=== PATIENT | female | born 1995 | race Caucasian/White ===

== ENCOUNTER 2021-10-16 16:36 | Inpatient (IN) | payer MEDICAID ==
[~2021-10-16] VITALS: Ht 160 cm; Wt 72.5 kg
[2021-10-16 17:31] LABS: BASOPHILS % (AUTO) 0 % (0-10); MONOCYTES % (AUTO) 0 % (0-12)
[2021-10-16 17:33] LABS: BASOPHILS # (AUTO) 0.1 10^3/uL (0.0-0.1); EOSINOPHILS # (AUTO) 0.3 10^3/uL (0.0-0.3); EOSINOPHILS % (AUTO) 2 % (0-10); HEMATOCRIT 42 % (35-52); HEMOGLOBIN 14.4 g/dL (11.5-16.0); LYMPHOCYTES # (AUTO) 0.2 10^3/uL (1.0-4.0); LYMPHOCYTES % (AUTO) 1 % (12-44); MEAN CORPUSCULAR HEMOGLOBIN 31 pg (25-34); MEAN CORPUSCULAR HGB CONC 34 g/dL (32-36); MEAN CORPUSCULAR VOLUME 92 fL (80-99); MEAN PLATELET VOLUME 10.7 fL (9.0-12.2); MONOCYTES # (AUTO) 0.1 10^3/uL (0.0-1.0); NEUTROPHILS # (AUTO) 18.6 10^3/uL (1.8-7.8); NEUTROPHILS % (AUTO) 96 % (42-75); PLATELET COUNT 56 10^3/uL (130-400); WHITE BLOOD COUNT 19.4 10^3/uL (4.3-11.0)
[2021-10-16 17:34] LABS: ALBUMIN 3.6 GM/DL (3.2-4.5)
[2021-10-16 17:35] LABS: CHLORIDE 106 MMOL/L (98-107); POTASSIUM 3.4 MMOL/L (3.6-5.0); SODIUM 139 MMOL/L (135-145)
[2021-10-16 17:36] LABS: CALCIUM 8.6 MG/DL (8.5-10.1)
[2021-10-16] MEDS ORDERED: morphine INJ 10 MG/ML 1ML (SYR OR VIAL) IVP STA (17:36)
[2021-10-16 17:37] LABS: GLUCOSE 101 MG/DL (70-105); TOTAL PROTEIN 6.6 GM/DL (6.4-8.2)
[2021-10-16 17:38] LABS: CARBON DIOXIDE 15 MMOL/L (21-32)
[2021-10-16 17:39] LABS: BILIRUBIN,TOTAL 6.4 MG/DL (0.1-1.0)
[2021-10-16 17:40] LABS: ALKALINE PHOSPHATASE 107 U/L (40-136)
[2021-10-16 17:41] LABS: CREATININE SERUM 1.06 MG/DL (0.60-1.30); GFR ESTIMATED 75
[2021-10-16 17:42] LABS: BUN/CREATININE RATIO 15
--- NOTE | 2021-10-16 17:42 | ED GU-Female ---
General Chief Complaint: - Reproductive Stated Complaint: VAGINAL PAIN, CHILLS Nursing Triage Note: PT AMB TO TRIAGE WITH COMPLAINT OF BEING SENT HERE BY OBGYN FOR ADMISSION. PT STATES SHE HAD A D&C FIVE DAYS IN [place] BY DR Potter. STATES SHE SAW HIM IN OFFICE TODAY AND HE TOLD HER THERE WAS NOT AN OBGYN ON WHO COULD ADMIT HER. STATES SHE WENT TO [place] ER LAST NIG AND WAS TOLD SHE HAD A BLOOD CLOT IN HER UTERUS. PT STATES SHE WAS 15 WEEKS ALONG WHEN SHE HAD THE D&C. STATES OB IS CONCERNED SHE COULD BE GOING SEPTIC. Source: patient Exam Limitations: no limitations (MAN LYNCH MED STUDENT) History of Present Illness Date Seen by Provider: Oct 16, 2021 Time Seen by Provider: 17:26 Initial Comments Mrs. Eaton is a 25yo female with PMH of kidney stones and D/C on the that presents to the ED due to vaginal pain and vomiting. She had D/C performed by Dr. Guerra. She has been been doing fin until last night. Her oxycodone and ibuprofen stopped being able to control the pain. She went to [facility] and was told they found a clot on CT. She states that her OBGYN was not available and was going to admit her and transfer her [place] or [place] due to suspeced sepsis. She decided to drive so she would not have to pay for an ambulance ride. Other symptoms she is having include Chills, sweats, SOB, nausea, and vomiting. She has had kidney stones before and she thought it kind of felt like previous stones when the pain came on but now is different. She does smoke and use marijuana. NKDA. (MAN LYNCH MED STUDENT) Initial Comments Patient reports since returning home from the [facility] last night she has had fairly intense nausea and vomiting with epigastric pain. She also has a generalized myalgia and chills. She has not experienced fever. Labs from the [facility] were reviewed and white count was 5.7. CT scan demonstrated contents inside the uterus, possibly clot, but no other acute abnormalities. Patient has a diffusely tender abdomen with pain more intense in the epigastrium. (GAIL ORANTES MD) Allergies and Home Medications Allergies Coded Allergies: No Known Drug Allergies (Unverified , 10/16/21) Patient Home Medication List Home Medication List Reviewed: Yes (GAIL ORANTES MD) Review of Systems Review of Systems Constitutional: chills; No fever EENTM: No hearing loss, No vision loss Respiratory: cough, short of breath; No wheezing Cardiovascular: No chest pain, No edema, No palpitations Gastrointestinal: abdominal pain; No constipation, No diarrhea, No melena; nausea, vomiting Genitourinary: denies dysuria, denies hematuria; pain : No Musculoskeletal: back pain (radiating from abdomen and vaginal pain); No joint pain, No joint swelling Skin: No lesions, No rash Psychiatric/Neurological: Denies Headache, Denies Numbness (MAN LYNCH [employer] STUDENT) Past Tilzseu-Yoxkki-Gxasem Hx Patient Social History Tobacco Use?: No Use of E-Cig and/or Vaping dev: No Substance use?: Yes Substance type: Marijuana Alcohol Use?: No Pt feels they are or have been: No (MAN LYNCH Markkit MELECIO) Immunizations Up To Date Influenza Vaccine Up-to-Date: No; Not Current (MAN LYNCH Markkit MELECIO) Physical Exam Vital Signs Vital Signs - First Documented 10/16/21 16:49 Temp 36.9 Pulse 108 Resp 22 B/P (MAP) 116/70 (85) Pulse Ox 97 O2 Delivery Room Air (NIXONLEXIEA Saroj DO) Vital Signs Capillary Refill : Less Than 3 Seconds (MAN LYNCH [employer] STUDENT) Height, Weight, BMI Height: '" Weight: lbs. oz. kg; 28.00 BMI Method: General Appearance: WD/WN, moderate distress HEENT: PERRL/EOMI, pharynx normal Cardiovascular: regular rate, rhythm, no edema, no murmur Respiratory: chest non-tender, lungs clear, normal breath sounds Gastrointestinal: normal bowel sounds, soft, tenderness (diffuse, worse in epigastric area) Extremities: non-tender, no pedal edema, no calf tenderness Neurologic/Psychiatric: alert, normal mood/affect, oriented x 3 Skin: normal color, warm/dry (MAN LYNCH [employer] STUDENT) Focused Exam Sepsis Stage: Sepsis Possible Source: Other (CREATIVE TECHNOLOGIST) Lactate Level 10/16/21 21:56: Lactic Acid Level 2.99*H 10/17/21 00:06: Lactic Acid Level 3.19*H 10/17/21 02:20: Lactic Acid Level 1.87 (RENITA RODRIGUEZ DO) Time of Focused Exam: 19:00 Respiratory: Normal Breath Sounds, No Accessory Muscle Use, No Respiratory Distress Cardiovascular: Regular Rate, Rhythm, No Murmur Capillary Refill: Less Than 3 Seconds Skin: normal color Lactic Acid Level Laboratory Tests Test 10/17/21 02:20 Lactic Acid Level 1.87 MMOL/L (0.50-2.00) (RENITA RODRIGUEZ DO) Within 3hrs of presentation: Admin fluids, Admin ABX, Blood cultures prior to ABX's, Focus exam, Lactate level (RENITA RODRIGUEZ DO) Progress/Results/Core Measures Suspected Sepsis SIRS Temperature: Pulse: 108 Respiratory Rate: 22 Laboratory Tests 10/16/21 17:10: White Blood Count 19.4H Blood Pressure 116 /70 Mean: 85 Laboratory Tests 10/16/21 17:10: Platelet Count 56L (MAN LYNCH MED STUDENT) Results/Orders Lab Results Laboratory Tests Test 10/16/21 00:10 10/16/21 17:10 10/16/21 17:42 10/16/21 18:01 Range/Units Procalcitonin 85.07 H 113.48 H <0.10 NG/ML White Blood Count 19.4 H 4.3-11.0 10^3/uL Red Blood Count 4.61 3.80-5.11 10^6/uL Hemoglobin 14.4 11.5-16.0 g/dL Hematocrit 42 35-52 % Mean Corpuscular Volume 92 80-99 fL Mean Corpuscular Hemoglobin 31 25-34 pg Mean Corpuscular Hemoglobin Concent 34 32-36 g/dL Red Cell Distribution Width 12.9 10.0-14.5 % Platelet Count 56 L 130-400 10^3/uL Mean Platelet Volume 10.7 9.0-12.2 fL Immature Granulocyte % (Auto) 1 % Neutrophils (%) (Auto) 96 H 42-75 % Lymphocytes (%) (Auto) 1 L 12-44 % Monocytes (%) (Auto) 0 0-12 % Eosinophils (%) (Auto) 2 0-10 % Basophils (%) (Auto) 0 0-10 % Neutrophils # (Auto) 18.6 H 1.8-7.8 10^3/uL Lymphocytes # (Auto) 0.2 L 1.0-4.0 10^3/uL Monocytes # (Auto) 0.1 0.0-1.0 10^3/uL Eosinophils # (Auto) 0.3 0.0-0.3 10^3/uL Basophils # (Auto) 0.1 0.0-0.1 10^3/uL Immature Granulocyte # (Auto) 0.2 H 0.0-0.1 10^3/uL Neutrophils % (Manual) 96 % Lymphocytes % (Manual) 1 % Monocytes % (Manual) 3 % Percent Immature Platelet Fraction 6.6 0.0-7.6 % Blood Morphology Comment NORMAL Sodium Level 139 135-145 MMOL/L Potassium Level 3.4 L 3.6-5.0 MMOL/L Chloride Level 106 98-107 MMOL/L Carbon Dioxide Level 15 L 21-32 MMOL/L Anion Gap 18 H 5-14 MMOL/L Blood Urea Nitrogen 16 7-18 MG/DL Creatinine 1.06 0.60-1.30 MG/DL Estimat Glomerular Filtration Rate 75 BUN/Creatinine Ratio 15 Glucose Level 101 70-105 MG/DL Lactic Acid Level 3.84 *H 0.50-2.00 MMOL/L Calcium Level 8.6 8.5-10.1 MG/DL Corrected Calcium 8.9 8.5-10.1 MG/DL Total Bilirubin 6.4 H 0.1-1.0 MG/DL Aspartate Amino Transf (AST/SGOT) 60 H 5-34 U/L Alanine Aminotransferase (ALT/SGPT) 31 0-55 U/L Alkaline Phosphatase 107 40-136 U/L C-Reactive Protein High Sensitivity 19.52 H 0.00-0.50 MG/DL Total Protein 6.6 6.4-8.2 GM/DL Albumin 3.6 3.2-4.5 GM/DL Lipase 4 L 8-78 U/L Human Chorionic Gonadotropin, Quant < 5 <5 MIU/ML Urine Color YELLOW Urine Clarity CLEAR Urine pH 6.0 5-9 Urine Specific [place] 1.025 H 1.016-1.022 Urine Protein 3+ H NEGATIVE Urine Glucose (UA) TRACE H NEGATIVE Urine Ketones TRACE H NEGATIVE Urine Nitrite POSITIVE H NEGATIVE Urine Bilirubin 2+ H NEGATIVE Urine Urobilinogen 4.0 < = 1.0 MG/DL Urine Leukocyte Esterase TRACE H NEGATIVE Urine RBC (Auto) 3+ H NEGATIVE Urine RBC 2-5 H /HPF Urine WBC 0-2 /HPF Urine Squamous Epithelial Cells 0-2 /HPF Urine Renal Epithelial Cells NONE /HPF Urine Crystals PRESENT H /LPF Urine Amorphous Sediment FEW PRIETO PHOSPHATE H /LPF Urine Bacteria LARGE H /HPF Urine Casts NONE /LPF Urine Mucus NEGATIVE /LPF Urine Yeast FEW H /HPF Urine Culture Indicated YES Influenza Type A (RT-PCR) Not Detected Not Detecte Influenza Type B (RT-PCR) Not Detected Not Detecte SARS-CoV-2 RNA (RT-PCR) Not Detected Not Detecte Test 10/16/21 19:48 10/16/21 21:56 10/17/21 00:06 10/17/21 02:20 Range/Units Lactic Acid Level 2.97 *H 2.99 *H 3.19 *H 1.87 0.50-2.00 MMOL/L Total Bilirubin 6.1 H 6.7 H 0.1-1.0 MG/DL Aspartate Amino Transf (AST/SGOT) 78 H 92 H 5-34 U/L Alanine Aminotransferase (ALT/SGPT) 37 55 0-55 U/L White Blood Count 19.3 H 17.7 H 4.3-11.0 10^3/uL Red Blood Count 4.10 4.13 3.80-5.11 10^6/uL Hemoglobin 13.0 13.0 11.5-16.0 g/dL Hematocrit 38 38 35-52 % Mean Corpuscular Volume 92 92 80-99 fL Mean Corpuscular Hemoglobin 32 32 25-34 pg Mean Corpuscular Hemoglobin Concent 34 34 32-36 g/dL Red Cell Distribution Width 12.9 13.0 10.0-14.5 % Platelet Count 54 L 55 L 130-400 10^3/uL Mean Platelet Volume 11.3 12.4 H 9.0-12.2 fL Immature Granulocyte % (Auto) 1 2 % Neutrophils (%) (Auto) 89 H 94 H 42-75 % Lymphocytes (%) (Auto) 2 L 2 L 12-44 % Monocytes (%) (Auto) 1 2 0-12 % Eosinophils (%) (Auto) 8 0 0-10 % Basophils (%) (Auto) 0 0 0-10 % Neutrophils # (Auto) 17.1 H 16.7 H 1.8-7.8 10^3/uL Lymphocytes # (Auto) 0.3 L 0.4 L 1.0-4.0 10^3/uL Monocytes # (Auto) 0.1 0.3 0.0-1.0 10^3/uL Eosinophils # (Auto) 1.5 H 0.0 0.0-0.3 10^3/uL Basophils # (Auto) 0.1 0.1 0.0-0.1 10^3/uL Immature Granulocyte # (Auto) 0.2 H 0.3 H 0.0-0.1 10^3/uL Percent Immature Platelet Fraction 9.0 H 0.0-7.6 % Prothrombin Time 19.8 H 19.3 H 12.2-14.7 SEC INR Comment 1.6 H 1.6 H 0.8-1.4 Sodium Level 138 139 135-145 MMOL/L Potassium Level 3.9 4.0 3.6-5.0 MMOL/L Chloride Level 104 106 98-107 MMOL/L Carbon Dioxide Level 16 L 15 L 21-32 MMOL/L Anion Gap 18 H 18 H 5-14 MMOL/L Blood Urea Nitrogen 19 H 21 H 7-18 MG/DL Creatinine 1.18 1.26 0.60-1.30 MG/DL Estimat Glomerular Filtration Rate 66 61 BUN/Creatinine Ratio 16 17 Glucose Level 103 92 70-105 MG/DL Calcium Level 7.8 L 7.5 L 8.5-10.1 MG/DL Activated Partial Thromboplast Time 48 H 24-35 SEC Fibrinogen 291 221-496 MG/DL Corrected Calcium 8.1 L 8.5-10.1 MG/DL Phosphorus Level 3.7 2.3-4.7 MG/DL Magnesium Level 1.2 L 1.6-2.4 MG/DL Alkaline Phosphatase 79 40-136 U/L Total Protein 5.9 L 6.4-8.2 GM/DL Albumin 3.2 3.2-4.5 GM/DL Procalcitonin 81.60 H <0.10 NG/ML (NIXON,RENITA K DO) My Orders Orders - NIXON,RENITA K DO Procalcitonin (Pct) (10/16/21 18:45) Iohexol Injection (Omnipaque 350 Mg/Ml 1 (10/16/21 19:00) Received Contrast (Hold Metformin- Contr (10/16/21 19:00) Ns (Ivpb) (Sodium Chloride 0.9% Ivpb Bag (10/16/21 19:00) (RENITA RODRIGUEZ DO) Medications Given in ED Current Medications Medications Dose Ordered Sig/Petros Route Start Time Stop Time Status Last Admin Dose Admin Iohexol 100 ml ONCE ONCE IV 10/16/21 18:45 10/16/21 18:46 DC 10/16/21 18:58 92 ML Lactated Ringer's 1,000 ml @ 0 mls/hr Q0M ONCE IV 10/16/21 18:45 10/16/21 18:46 DC 10/16/21 18:44 0 MLS/HR Piperacillin Sod/ Tazobactam Sod 4.5 gm/Sodium Chloride 100 ml @ 200 mls/hr ONCE ONCE IV 10/16/21 18:45 10/16/21 19:14 DC 10/16/21 19:19 200 MLS/HR Sodium Chloride 100 ml ONCE ONCE IV 10/16/21 18:45 10/16/21 18:46 DC 10/16/21 18:58 80 ML (RENITA RODRIGUEZ DO) Vital Signs/I&O 10/16/21 10/16/21 10/16/21 10/16/21 19:39 20:40 20:45 20:56 Temp 36.7 36.2 Pulse 105 104 100 Resp 18 18 B/P (MAP) 103/65 117/60 (79) Pulse Ox 96 98 O2 Delivery Room Air Room Air Room Air 10/16/21 10/17/21 10/17/21 10/17/21 23:15 00:37 03:31 04:00 Temp 37.7 36.0 36.0 Pulse 114 110 Resp 18 B/P (MAP) 98/67 (77) Pulse Ox 100 O2 Delivery Room Air 10/17/21 04:00 O2 Delivery Room Air (RENITA RODRIGUEZ DO) Vital Signs/I&O Capillary Refill : Less Than 3 Seconds (MAN LYNCH MED STUDENT) Blood Pressure Mean: 85 Progress Note : Progress Note 1800--ASSUMED CARE FROM DR. ORANTES, LAB, CT PENDING. PT RESTING COMFORTABLY AT THIS TIME. NO COMPLAINTS VITALS ARE STABLE HEART RATE REMAINS 90-100 NO HYPOTENSION NO FEVER NO DETERIORATION IN PT'S CONDITION DURING ER STAY (RENITA RODRIGUEZ DO) Progress Note : Time: 19:03 Progress Note Patient was seen and examined along with MS 4. She was found to have a diffusely tender abdomen with more intense tenderness in the epigastrium. She was treated with Zofran, Pepcid, and morphine. IV fluids are infusing. She is noted to have a significant shift in labs from her ER visit last night. Her WBC is now 19,000. CRP is also notably elevated. With a marked jump in WBC, tachycardia, and chills, she should be considered septic. Urinalysis demonstrated a mixed picture. It was nitrite positive with large bacteria but no significant WBC count. Lactic acid was elevated. Blood cultures have been drawn. I discussed the case with Dr. Nelson, MEDICAL RADIATION THERAPIST on-call. We discussed imaging modalities to evaluate her pain and sepsis further. Retained products is an unlikely etiology without any vaginal bleeding and a negative serum hCG quant. Other abdominal infection should be ruled out. We both agree CT of the abdomen and pelvis should be repeated due to the abrupt change in the patient's status and lab values since last night. Risks and benefits were reviewed and we feel obligated to obtain a repeat CT scan after discussion. Patient is being empirically treated with Zosyn at this time. CT scan was obtained and interpretation is pending. Influenza and COVID-19 nasal swabs were obtained as patient significant other also noted she had some cough in the last hour. Both tests were negative. Care of this patient has been transitioned to Dr. Rodriguez. (GAIL ORANTES MD) Diagnostic Imaging Comments CT ABDOMEN /PELVIS--PER RADIOLOGIST REPORT AT 1914 FINDINGS: The heart is unremarkable. The included lung bases are clear. Focal fatty infiltration is seen along the falciform ligament. No focal hepatic lesions. The portal vein is patent. The gallbladder is filled with dense material likely representing recent contrast study. The spleen, pancreas, adrenal glands and kidneys have a normal appearance. There is no pathologically enlarged mesenteric or retroperitoneal adenopathy. The bowel loops are nondilated. There is no free fluid or free air. No acute osseous abnormalities. Ureters and bladder are grossly normal. There is thickening of the endometrium with hyperemia along the endometrial lining and fluid filling the endometrial cavity. The endometrial cavity measures 3.6 cm in diameter. There is no free air, loculated collection or adenopathy in the pelvis. IMPRESSION: Suggestive of endometritis versus retained products of conception. Recommend correlation with physical exam and close follow-up, as indicated. Pelvic ultrasound may also be considered. Reviewed: Reviewed by Me (RENITA RODRIGUEZ DO) Diagonstic Imaging: CT Plain Films/CT/US/NM/MRI: abdomen, pelvis Comments CT abdomen and pelvis viewed by me and report reviewed. See report below: NAME: MOHINDER EATON [facility] REC#: [id number] PT STATUS: REG ER : 1995 PHYSICIAN: GAIL ORANTES MD ADMIT DATE: 10/16/21/ER Signed Date of Exam:10/16/21 CT ABDOMEN/PELVIS W EXAMINATION: CT abdomen and pelvis with intravenous contrast. TECHNIQUE: Multiple contiguous axial images were obtained through the abdomen and pelvis after the uneventful administration of intravenous contrast. All CT scans use one or more of the following dose optimizing techniques: automated exposure control, MA and/or KvP adjustment based on patient size and exam type or iterative reconstruction. HISTORY: Generalized abdominal pain. Recent D C. COMPARISON: None available. FINDINGS: The heart is unremarkable. The included lung bases are clear. Focal fatty infiltration is seen along the falciform ligament. No focal hepatic lesions. The portal vein is patent. The gallbladder is filled with dense material likely representing recent contrast study. The spleen, pancreas, adrenal glands and kidneys have a normal appearance. There is no pathologically enlarged mesenteric or retroperitoneal adenopathy. The bowel loops are nondilated. There is no free fluid or free air. No acute osseous abnormalities. Ureters and bladder are grossly normal. There is thickening of the endometrium with hyperemia along the endometrial lining and fluid filling the endometrial cavity. The endometrial cavity measures 3.6 cm in diameter. There is no free air, loculated collection or adenopathy in the pelvis. IMPRESSION: Suggestive of endometritis versus retained products of conception. Recommend correlation with physical exam and close follow-up, as indicated. Pelvic ultrasound may also be considered. Dictated by: Dictated on workstation # [id number] Dict: 10/16/211904 Trans: 10/16/211910 [facility] [phone] Interpreted by: RUDY LADN DO Electronically signed by: RUDY LAND DO 10/16/211910 (GAIL ORANTES MD) Departure Communication (Admissions) 1914--SPOKE WITH DR. NELSON, MEDICAL RADIATION THERAPIST BUMPER AND PAINTER. ACCEPTS PT FOR ADMIT (RENITA RODRIGUEZ DO) Impression Primary Impression: Sepsis Additional Impressions: Endometritis POSSIBLE RETAINED PRODUCTS OF CONCEPTION S/P D&C (status post dilation and curettage) UTI (urinary tract infection) Elevated bilirubin Thrombocytopenia Disposition: ADMITTED INPATIENT Condition: Stable Admissions Decision to Admit Reason: Admit from ER (General) Decision to Admit/Date: Oct 16, 2021 Time/Decision to Admit Time: 19:15 (RENITA RODRIGUEZ DO) Medical Student Attestation and Attending Note: I have personally interviewed and examined this patient along with Man Lynch, MS 4. I have reviewed student documentation including history, physical, and assessments. I agree with the documentation except where otherwise noted. Exam: General: Alert, oriented, thin, ill-appearing, mild distress HEENT: Normocephalic and atraumatic, mucous membranes somewhat dry Heart: Mild tachycardia, regular rate and rhythm without murmur Lungs: Clear to auscultation bilaterally with normal effort Abdomen: Soft, nontender, nondistended, normal bowel sounds Neuropsych: Alert, oriented, no focal deficits Skin: Warm and dry without rashes (GAIL ORANTES MD) MAN LYNCH MED STUDENT Oct 16, 2021 17:42 RENITA RODRIGUEZ DO Oct 16, 2021 18:44 GAIL ORANTES MD Oct 16, 2021 19:07
[2021-10-16 17:44] LABS: ALANINE AMINOTRANSFERASE 31 U/L (0-55)
[2021-10-16] MEDS ORDERED: FAMOTIDINE 20MG/2ML IV (PEPCID) IVP ONE (17:45)
[2021-10-16] MEDS ORDERED: ONDANSETRON 4 MG/2 ML (SDV) Z0FRAN IVP ONE (17:45)
[2021-10-16 17:50] LABS: BILIRUBIN,URINE 2+ (NEGATIVE); CLARITY,URINE CLEAR; COLOR,URINE YELLOW; GLUCOSE, URINE (UA) TRACE (NEGATIVE); KETONES,URINE TRACE (NEGATIVE); LEUKOCYTE ESTERASE ,URINE TRACE (NEGATIVE); NITRITE,URINE POSITIVE (NEGATIVE); PROTEIN,URINE 3+ (NEGATIVE)
[2021-10-16 17:51] LABS: LYMPHOCYTES % (MANUAL) 1 %; MONOCYTES % (MANUAL) 3 %; NEUTROPHILS % (MANUAL) 96 %; RBC MORPH NORMAL
[2021-10-16 18:01] LABS: BACTERIA,URINE LARGE /HPF; SQUAMOUS EPITHELIAL CELL,UR 0-2 /HPF; WBC,URINE 0-2 /HPF
[2021-10-16 18:02] LABS: AMORPHOUS SEDIMENT,UR FEW AMOR PHOSPHATE /LPF; YEAST,URINE FEW /HPF
[2021-10-16] MEDS ORDERED: LACTATED RINGERS 1,000 ML IV ONE ×2 (18:41→18:45)
[2021-10-16] MEDS ORDERED: NS 100 ML (IVPB) BAG IV ONE ×2 (18:45→19:00)
[2021-10-16] MEDS ORDERED: HOLD METFORMIN - RECEIVED CONTRAST 20 ML VIAL IV SCH ×2 (18:45→19:00)
[2021-10-16] MEDS ORDERED: IOHEXOL 350 MG/ML 100 ML (OMNIPAQUE 350) VIAL IV ONE ×2 (18:45→19:00)
[2021-10-16] MEDS ORDERED: PIPERACILLIN SODIUM/TAZOBACTAM 4.5 GM in NS (IVPB) 100 ML IV ONE ×2 (18:45→22:00)
--- NOTE | 2021-10-16 19:10 | Diagnostic Imaging Report ---
EXAMINATION: CT abdomen and pelvis with intravenous contrast. TECHNIQUE: Multiple contiguous axial images were obtained through the abdomen and pelvis after the uneventful administration of intravenous contrast. All CT scans use one or more of the following dose optimizing techniques: automated exposure control, MA and/or KvP adjustment based on patient size and exam type or iterative reconstruction. HISTORY: Generalized abdominal pain. Recent D&C. COMPARISON: None available. FINDINGS: The heart is unremarkable. The included lung bases are clear. Focal fatty infiltration is seen along the falciform ligament. No focal hepatic lesions. The portal vein is patent. The gallbladder is filled with dense material likely representing recent contrast study. The spleen, pancreas, adrenal glands and kidneys have a normal appearance. There is no pathologically enlarged mesenteric or retroperitoneal adenopathy. The bowel loops are nondilated. There is no free fluid or free air. No acute osseous abnormalities. Ureters and bladder are grossly normal. There is thickening of the endometrium with hyperemia along the endometrial lining and fluid filling the endometrial cavity. The endometrial cavity measures 3.6 cm in diameter. There is no free air, loculated collection or adenopathy in the pelvis. IMPRESSION: Suggestive of endometritis versus retained products of conception. Recommend correlation with physical exam and close follow-up, as indicated. Pelvic ultrasound may also be considered. Dictated by: Dictated on workstation # [id number]
--- NOTE | 2021-10-16 19:21 | Diagnostic Imaging Report ---
Indication: Cough and sepsis Single AP view of chest is obtained. COMPARISON: No previous study is available for comparison at this time. FINDINGS: Heart size and pulmonary vasculature are within normal limits, and the lungs are clear, bilaterally. IMPRESSION: Unremarkable chest. Dictated by: Dictated on workstation # [id number]
[2021-10-16] MEDS ORDERED: D5 1/2 NS W/KCL 20 MEQ/L 1,000 ML IV ONE (20:39)
[2021-10-16 20:40] VITALS: BP 117/60
[2021-10-16] MEDS ORDERED: ACETAMINOPHEN 500 MG TAB (TYLENOL) PO PRN (21:30)
--- NOTE | 2021-10-16 21:42 | History & Physical-OB/GYN ---
History of Present Illness History of Present Illness Reason for visit/HPI 25-year-old 3 para 1-0-2-1 status post D&C for missed AB postop day 5 presented to the emergency room this evening with complaints of nausea and vomiting and pain. EDC by LMP was January 07, 2022. Her first OB visit would have been clinical dates of 15 weeks however no heart tones were noted. Sonogram showed a missed AB at 8 weeks. Patient experienced vaginal bleeding through most of July and thought she had already miscarried. On October 09 she went to the emergency room with bleeding and pain and was found to have the missed AB and underwent D&C on the . The patient was discharged the same day of surgery with prescriptions for ibuprofen and oxycodone. She reported intense cramping following discharge that increased to the point that she went to the emergency room last night. She was discharged home and this morning began having severe nausea and vomiting all day with chills and cold sweats. She complains of slight pain with urination and reports that her urine has been bloody all day today. Denies vaginal bleeding or blood in her underwear. Denies vaginal discharge odor or pruritus. Reports the pain has been worse in her back on both sides. Denies fever reporting the highest temp at home was 99 F. Denies sick contacts, denies chest pain shortness of air, denies diarrhea or constipation. The pain in her upper abdomen is now worse than her back pain. Exacerbating factors include trying to sit up or vomiting. Patient reports she is feeling hungry following IV fluids and pain medication to the ER. Denies a clotting disorder. Obstetrical history; first was a first trimester spontaneous miscarriage, second was a term spontaneous vaginal delivery and her 4-year-old daughter is healthy. Date of Admission Oct 16, 2021 at 19:15 Date Seen by a Provider: Oct 16, 2021 Time Seen by a Provider: 21:10 I consulted on this patient on 10/16/21 21:36 Attending Physician Johnny Land MD Admitting Physician Consult Allergies and Home Medications Allergies Coded Allergies: No Known Drug Allergies (Unverified , 10/16/21) Patient Home Medication List Home Medication List Reviewed: Yes Past Lktizee-Msqvgd-Qzsung Hx Patient Social History Number of Children: 1 Number of living children: 1 Drug of Choice: marijuana - daily user Smoking Status: Current Everyday Smoker Cigaretts per day: 10 Recent Hopitalizations: Yes Have you traveled recently?: No Alcohol Use?: No Substance type: Marijuana Pt feels they are or have been: No Tobacco type used: Cigarettes Surgeries Yes (D&C 10/11/21, lithotripsy with ureteral stent) Respiratory No Currently Using CPAP: No Currently Using BIPAP: No Cardiovascular No Neurological No Reproductive System : No Hx : 3 Hx Para: 1 Hx Total # of Abortions (Spona: 2 Genitourinary Kidney Infection, Kidney Stones Gastrointestinal No Musculoskeletal No Endocrine History of Endocrine Disorders: No Are Your Blood Sugars Over 250: No HEENT History of HEENT Disorders: No Hearing Impairment: Denies Cancer No Psychosocial History of Psychiatric Problem: No Integumentary History of Skin or Integumenta: No Blood Transfusions History of Blood Disorders: No Reviewed Nursing Assessment Reviewed/Agree w Nursing PMH: Yes Family Medical History Significant Family History: No Pertinent Family Hx Review of Systems Constitutional: see HPI EENTM: no symptoms reported Respiratory: no symptoms reported Cardiovascular: no symptoms reported Gastrointestinal: see HPI, abdominal pain Genitourinary: see HPI, hematuria Musculoskeletal: no symptoms reported Skin: no symptoms reported Psychiatric/Neurological: No Symptoms Reported All Other Systems Reviewed Negative Unless Noted: No Physical Exam Physical Exam Vital Signs Vital Signs Date Time Temp Pulse Resp B/P (MAP) Pulse Ox O2 Delivery O2 Flow Rate FiO2 10/16/21 20:40 36.2 104 18 117/60 (79) 98 Room Air 10/16/21 19:39 36.7 105 18 103/65 96 Room Air 10/16/21 16:49 36.9 108 22 116/70 (85) 97 Room Air Capillary Refill : Less Than 3 Seconds Labs Laboratory Tests 10/16/21 17:10: White Blood Count 19.4H, Red Blood Count 4.61, Hemoglobin 14.4, Hematocrit 42, Mean Corpuscular Volume 92, Mean Corpuscular Hemoglobin 31, Mean Corpuscular Hemoglobin Concent 34, Red Cell Distribution Width 12.9, Platelet Count 56L, Mean Platelet Volume 10.7, Immature Granulocyte % (Auto) 1, Neutrophils (%) (Auto) 96H, Lymphocytes (%) (Auto) 1L, Monocytes (%) (Auto) 0, Eosinophils (%) (Auto) 2, Basophils (%) (Auto) 0, Neutrophils # (Auto) 18.6H, Lymphocytes # (Auto) 0.2L, Monocytes # (Auto) 0.1, Eosinophils # (Auto) 0.3, Basophils # (Auto) 0.1, Immature Granulocyte # (Auto) 0.2H, Neutrophils % (Manual) 96, Lymphocytes % (Manual) 1, Monocytes % (Manual) 3, Percent Immature Platelet Fraction 6.6, Blood Morphology Comment NORMAL, Sodium Level 139, Potassium Level 3.4L, Chloride Level 106, Carbon Dioxide Level 15L, Anion Gap 18H, Blood Urea Nitrogen 16, Creatinine 1.06, Estimat Glomerular Filtration Rate 75, BUN/Creatinine Ratio 15, Glucose Level 101, Lactic Acid Level 3.84*H, Calcium Level 8.6, Corrected Calcium 8.9, Total Bilirubin 6.4H, Aspartate Amino Transf (AST/SGOT) 60H, Alanine Aminotransferase (ALT/SGPT) 31, Alkaline Phosphatase 107, C-Reactive Protein High Sensitivity 19.52H, Total Protein 6.6, Albumin 3.6, Lipase 4L, Procalcitonin 113.48H, Human Chorionic Gonadotropin, Quant < 5 10/16/21 17:42: Urine Color YELLOW, Urine Clarity CLEAR, Urine pH 6.0, Urine Specific Horton 1.025H, Urine Protein 3+H, Urine Glucose (UA) TRACEH, Urine Ketones TRACEH, Urine Nitrite POSITIVEH, Urine Bilirubin 2+H, Urine Urobilinogen 4.0, Urine Leukocyte Esterase TRACEH, Urine RBC (Auto) 3+H, Urine RBC 2-5H, Urine WBC 0-2, Urine Squamous Epithelial Cells 0-2, Urine Renal Epithelial Cells NONE, Urine Crystals PRESENTH, Urine Amorphous Sediment FEW PRIETO PHOSPHATEH, Urine Bacteria LARGEH, Urine Casts NONE, Urine Mucus NEGATIVE, Urine Yeast FEWH, Urine Culture Indicated YES 10/16/21 18:01: Influenza Type A (RT-PCR) Not Detected, Influenza Type B (RT-PCR) Not Detected, SARS-CoV-2 RNA (RT-PCR) Not Detected 10/16/21 19:48: Lactic Acid Level 2.97*H Radiology Studies See CT Report General Appearance: No Apparent Distress Respiratory: Chest Non Tender, Normal Breath Sounds Abdominal: soft, tenderness Extremity: Normal Range of Motion, Non Tender, No Calf Tenderness (bilateral CVA tenderness noted, mild suprapubic tenderness on exam) Assessment/Plan Admission Diagnosis SIRS/sepsis - pyelonephritis vs post-op endometritis s/p D&C POD#5 thrombocytopenia elevated liver function tests marijuana and tobacco user hematuria nausea and vomitting Yeast noted on urinalysis Plan: 1. Continue IV antibiotics 2. Urine culture blood cultures pending 3. repeat lab ordered including trend of platelets liver function tests lactic acid and will add coagulation studies 4. SCDs for DVT prophylaxis 5. Advance diet as tolerated 6. Discussed with the patient and her significant other plan and questions answered to their satisfaction. 7. Release of records to Dr. Corbett's office for her labs. Patient reports had negative infectious screening including gonorrhea and chlamydia 8. Will initiate probiotic once tolerating p.o. Admission Status: Inpatient Order (span 2 midnights) Reason for Inpatient Admission: above diagnosis with anticipated IV antibiotics, fluid replacement JOHNNY LAND MD Oct 16, 2021 21:42
[2021-10-16] MEDS: D5 1/2 NS W/KCL 20 MEQ/L 1,000 ML IV SCH (21:43)
[2021-10-16] MEDS ORDERED: VANCOMYCIN INJECTION 1,500 MG in NS IV 500 ML 500 ML IV ONE (22:00)
[2021-10-16] MEDS ORDERED: VANCOMYCIN 1000 MG/VIAL ONE (22:03)
[2021-10-16] MEDS ORDERED: NS IV 500 ML 500 ML ONE (22:04)
[2021-10-16] MEDS ORDERED: VANCOMYCIN 500 MG/VIAL IV ONE (22:05)
[2021-10-16 22:11] LABS: BASOPHILS % (AUTO) 0 % (0-10)
[2021-10-16 22:13] LABS: BASOPHILS # (AUTO) 0.1 10^3/uL (0.0-0.1); EOSINOPHILS # (AUTO) 1.5 10^3/uL (0.0-0.3); EOSINOPHILS % (AUTO) 8 % (0-10); HEMATOCRIT 38 % (35-52); LYMPHOCYTES # (AUTO) 0.3 10^3/uL (1.0-4.0); LYMPHOCYTES % (AUTO) 2 % (12-44); MEAN CORPUSCULAR HEMOGLOBIN 32 pg (25-34); MEAN CORPUSCULAR HGB CONC 34 g/dL (32-36); MEAN CORPUSCULAR VOLUME 92 fL (80-99); MEAN PLATELET VOLUME 11.3 fL (9.0-12.2); MONOCYTES # (AUTO) 0.1 10^3/uL (0.0-1.0); MONOCYTES % (AUTO) 1 % (0-12); NEUTROPHILS # (AUTO) 17.1 10^3/uL (1.8-7.8); NEUTROPHILS % (AUTO) 89 % (42-75); PLATELET COUNT 54 10^3/uL (130-400); WHITE BLOOD COUNT 19.3 10^3/uL (4.3-11.0)
[2021-10-16 22:16] LABS: POTASSIUM 3.9 MMOL/L (3.6-5.0)
[2021-10-16 22:17] LABS: CALCIUM 7.8 MG/DL (8.5-10.1)
[2021-10-16 22:21] LABS: CREATININE SERUM 1.18 MG/DL (0.60-1.30)
[2021-10-16 22:23] LABS: INR 1.6 (0.8-1.4); PROTHROMBIN TIME PATIENT 19.8 SEC (12.2-14.7)
[2021-10-16] MEDS: ONDANSETRON 4 MG/2 ML (SDV) Z0FRAN IV PRN (22:25)
[2021-10-16] MEDS: fentaNYL INJ 100 MCG/2 ML AMP IV PRN (22:26)
[2021-10-16 23:15] VITALS: BP 98/67
[2021-10-16 23:17] LABS: BILIRUBIN,TOTAL 6.1 MG/DL (0.1-1.0)
--- NOTE | 2021-10-16 23:50 | Progress Note ---
Standard Progress Note Progress Notes/Assess & Plan Date Seen by a Provider: Oct 16, 2021 Time Seen by a Provider: 23:00 Progress/Assessment & Plan S: pain wellcontrolled with IV pain meds. Reports pain in upper abdomen but still feels that pain is from vomitting. Last void was reported as more brown than bloody, denies dysuria. Nausea slightly improved - had an appetite and ate a chicken nugget and a large glass of water and vomitted back up. continues to deny vaginal discharge, odor or bleeding O: vital signs stable, remains afebrile Gen: A&O x 3, NAD. Watching tv with SO Chest: nonlabored Abd: soft, tender throughout unchanged, no rebound/guarding Ext: NT Vulva: no lesions urethra: nontender, no masses vagina: pink, physiologic discharge, no lesions cervix: pink, os closed without discharge bimanual exam: no tenderness on palpation of cervix, however bimanual exam with tenderness, no adnexal masses appreciated Labs: Repeated labs as was surprised by low platelets and elevated bili, repeat platelets the same, Cr slight increase to 1.18, LFTs/bili pending. A: s/p D&C POD#5 with suspected septic AB given labs and clinical peritonitis P: Consult to hospitalist - discussed patient with Dr. Banuelos - will transfer patient to ICU - hepatitis panel, [place] and repeat procalcitonin added - abdominal and pelvic sono ordered for am - NPO for imaging, vomitting and possible need for surgical intervention - cont IV antibiotics. Will consider changing to gentamicin/clindamycin given more focused diagnosis of uterine source (rather than GI or as initially tan spected in ER) - discussed with patient and SO plan and questions answered to their satisfaction Focused Exam Lactate Level 10/16/21 17:10: Lactic Acid Level 3.84*H 10/16/21 19:48: Lactic Acid Level 2.97*H 10/16/21 21:56: Lactic Acid Level 2.99*H Lactic Acid Level Laboratory Tests Test 10/16/21 19:48 10/16/21 21:56 Lactic Acid Level 2.97 MMOL/L (0.50-2.00) *H 2.99 MMOL/L (0.50-2.00) *H JOHNNY LAND MD Oct 16, 2021 23:50
[2021-10-17] VITALS (18 sets, daily range): BP systolic 91–127; BP diastolic 46–83
[2021-10-17] MEDS: PIPERACILLIN SODIUM/TAZOBACTAM 4.5 GM in NS (IVPB) 100 ML IV SCH ×2 (01:32→07:09)
[2021-10-17] MEDS: fentaNYL INJ 100 MCG/2 ML AMP IV PRN ×3 (01:46→11:53)
[2021-10-17] MEDS: ONDANSETRON 4 MG/2 ML (SDV) Z0FRAN IV PRN (01:51)
--- NOTE | 2021-10-17 01:51 | Tele-ICU Progress Note ---
Progress Note 25F [id number], now POD#5 s/p D&C for spontanous loss. Has been to the ER multiple times for bleeding, abdominal pain, nausea, vomiting x5 days. She was told she had a clot within the uterus on CT, but they did not know what to do for her and recommended she come to [facility]. She elected for private transport to avoid the ambulance fee. She was initially admitted to the floor for IV abx, OB evaluation. BP has been borderline, but not lower than 90 systolic. Transfered to ICU for uptrending lactic, with first 2 resulting at 2.99 and third up to 3.19. - sepsis: source as above. OB consulted. Broad spectrum abx ongoing, cultures pending. Uptrending lactic acidosis is reasonable in the setting of ongoing infectious resevoir (i.e. infected intrauterine hematoma) with intermittent bacterial seeding. Will continue to monitor. - thrombocytopenia: secondary to consumption in setting of ongoing bleeding vs low grade DIC. INR borderline at 1.6. Will repeat along with fibrinogen. - bleeding: Hg from 14.4 to 13, HD stable, no overt bleeding. No indication for transfusion. Will get T&S in case FFP is needed for DIC. Focused Exam Lactate Level 10/16/21 19:48: Lactic Acid Level 2.97*H 10/16/21 21:56: Lactic Acid Level 2.99*H 10/17/21 00:06: Lactic Acid Level 3.19*H Height, Weight, BMI Height: '" Weight: lbs. oz. kg; 28.32 BMI Method: Lactic Acid Level Laboratory Tests Test 10/16/21 21:56 10/17/21 00:06 Lactic Acid Level 2.99 MMOL/L (0.50-2.00) *H 3.19 MMOL/L (0.50-2.00) *H BIANCA MARR MD Oct 17, 2021 01:51
[2021-10-17 02:32] LABS: BASOPHILS # (AUTO) 0.1 10^3/uL (0.0-0.1); BASOPHILS % (AUTO) 0 % (0-10); EOSINOPHILS % (AUTO) 0 % (0-10); HEMATOCRIT 38 % (35-52); LYMPHOCYTES # (AUTO) 0.4 10^3/uL (1.0-4.0); LYMPHOCYTES % (AUTO) 2 % (12-44); MEAN CORPUSCULAR HEMOGLOBIN 32 pg (25-34); MEAN CORPUSCULAR HGB CONC 34 g/dL (32-36); MEAN CORPUSCULAR VOLUME 92 fL (80-99); MEAN PLATELET VOLUME 12.4 fL (9.0-12.2); MONOCYTES # (AUTO) 0.3 10^3/uL (0.0-1.0); MONOCYTES % (AUTO) 2 % (0-12); NEUTROPHILS # (AUTO) 16.7 10^3/uL (1.8-7.8); NEUTROPHILS % (AUTO) 94 % (42-75); PLATELET COUNT 55 10^3/uL (130-400); WHITE BLOOD COUNT 17.7 10^3/uL (4.3-11.0)
[2021-10-17 02:55] LABS: ALBUMIN 3.2 GM/DL (3.2-4.5)
[2021-10-17 02:57] LABS: CALCIUM 7.5 MG/DL (8.5-10.1)
[2021-10-17 02:58] LABS: TOTAL PROTEIN 5.9 GM/DL (6.4-8.2)
[2021-10-17 03:00] LABS: BILIRUBIN,TOTAL 6.7 MG/DL (0.1-1.0)
[2021-10-17 03:01] LABS: PHOSPHORUS 3.7 MG/DL (2.3-4.7)
[2021-10-17 03:02] LABS: CREATININE SERUM 1.26 MG/DL (0.60-1.30)
[2021-10-17 03:05] LABS: MAGNESIUM 1.2 MG/DL (1.6-2.4)
[2021-10-17] MEDS: KETOROLAC 30 MG/ML VIAL IV PRN ×2 (03:17→09:51)
[2021-10-17] MEDS: D5 1/2 NS W/KCL 20 MEQ/L 1,000 ML IV SCH ×3 (03:18→11:53)
[2021-10-17 03:37] LABS: INR 1.6 (0.8-1.4); PROTHROMBIN TIME PATIENT 19.3 SEC (12.2-14.7)
[2021-10-17] MEDS: MAGNESIUM 1 GM/100 ML IVPB 100 ML IV SCH ×4 (05:36→08:59)
[2021-10-17] MEDS ORDERED: KCL 20 MEQ TAB (K-DUR) PO SCH (06:00)
[2021-10-17] MEDS ORDERED: POTASSIUM CL 10MEQ/50ML IVPB 50 ML IV SCH (06:00)
[2021-10-17] MEDS ORDERED: MAGNESIUM 1 GM/100 ML IVPB 100 ML IV SCH (06:00)
[2021-10-17] MEDS ORDERED: NS IV 500 ML 500 ML IV SCH (06:30)
--- NOTE | 2021-10-17 06:55 | Progress Note ---
Standard Progress Note Progress Notes/Assess & Plan Date Seen by a Provider: Oct 17, 2021 Time Seen by a Provider: 06:15 Progress/Assessment & Plan S: pain wellcontrolled with IV pain meds. Vomitting has decreased. Has been sleeping past several hours. Denies fevers but still occassional chills. Prior to arrival began having vaginal bleeding. Denies dysuria. No other new c/o O: vital signs stable, remains afebrile Gen: A&O x 3, NAD. Chest: nonlabored Abd: soft, tender on exam (slightly improved), no rebound/guarding Ext: NT Bedside sono: uterus with 3.2 x 3.6cm area of heterogenous material, no active blood flow noted Labs: Lactic acid trending down. Hb stable. WBC 17 <--19. Cr and LFTs increased. A: s/p D&C POD#5 with suspected septic AB P: Abdominal and Pelvic sono this am - consider sono-guided suction D&C based on findings. Risks of surgery including bleeding, damage to uterus including risk of perforation and damage to other organs reviewed. Potential need for blood product tranfusion discussed and risks/benefits reviewed - patient gives consent for the procedure and blood product transfusion if indicated - OR notified of potential case - Greatly appreciate care from eICU/hospitalist - discussed with patient and SO plan and questions answered to their satisfaction Focused Exam Lactate Level 10/16/21 21:56: Lactic Acid Level 2.99*H 10/17/21 00:06: Lactic Acid Level 3.19*H 10/17/21 02:20: Lactic Acid Level 1.87 Time of Focused Exam: 19:00 JOHNNY LAND MD Oct 17, 2021 06:55
--- NOTE | 2021-10-17 07:31 | Consultation ---
HPI History of Present Illness: HPI/Chief Complaint Chief complaint: Abdominal pain with abnormal lab results History of present illness: This is a 25-year-old white female who presented to [facility] upon recommendation from her FOREST ECOLOGIST at [facility] status post 6 days postop from a D&C following a miscarriage. Apparently she had been seen in the [facility] ER multiple times for nausea vomiting abdominal pain and CT scan showed endometritis consistent with recent D&C. I was contacted at [address] Nelson due to elevated white blood cell count of 19,000 elevated procalcitonin of 110 and elevated lactic acid 2.9 all consistent with sepsis. I recommended to move to the ICU continue the IV fluid of 200 cc an hour and maintain vancomycin and Zosyn broad-spectrum antibiotic coverage. eICU was consulted and started work-up for hemolysis and DIC. She remained stable clinically and blood pressure remained normal. Ultrasound showed likely infected endometrial hematoma and considering her liver enzyme abnormalities and mother lab dysfunction it was decided to move to a higher level of care at [facility]. Source: patient, RN/MD, old records Exam Limitations: clinical condition Date Seen 10/17/21 Attending Physician Batsheva Nelson MD PCP Referring Physician Date of Admission Oct 16, 2021 at 19:15 Home Medications & Allergies Home Medications Reviewed patient Home Medication Reconciliation performed by pharmacy medication reconciliations biotechnician and/or nursing. Patients Allergies have been reviewed. Allergies Allergies Coded Allergies No Known Drug Allergies (Unverified10/16/21) Past Dksjheq-Nkaasz-Wwldow Hx Past Med/Social Hx: Reviewed Nursing Past Med/Soc Hx, Reviewed and Corrections made Patient Social History Marrital Status: cohabiting Number of Children: 1 Number of living children: 1 Employed/Student: unemployed Drug of Choice: marijuana - daily user Smoking Status: Current Everyday Smoker Cigaretts per day: 10 Recent Foreign Travel: No Contact w/other who traveled: No Recent Hopitalizations: Yes Recent Infectious Disease Expo: No Past Medical History D&C 09/2021 Currently Using CPAP: No Currently Using BIPAP: No : No Hx : 3 Hx Para: 1 Hx Total # of Abortions(Spont): 2 Genitourinary: Kidney Infection, Kidney Stones Are Your Blood Sugars Over 250: No Hearing Impairment: Denies History of Blood Disorders: No Family History No Pertinent Family Hx Review of Systems Constitutional: see HPI, dizziness, fever, malaise, weakness EENTM: no symptoms reported Respiratory: no symptoms reported Cardiovascular: no symptoms reported Gastrointestinal: abdominal pain, loss of appetite, nausea, vomiting Genitourinary: no symptoms reported Musculoskeletal: no symptoms reported Skin: no symptoms reported Psychiatric/Neurological: No Symptoms Reported All Other Systems Reviewed Negative Unless Noted: Yes Physical Exam Physical Exam Vital Signs Vital Signs - First Documented 10/16/21 16:49 Temp 36.9 Pulse 108 Resp 22 B/P (MAP) 116/70 (85) Pulse Ox 97 O2 Delivery Room Air Capillary Refill : Less Than 3 Seconds Height, Weight, BMI Height: '" Weight: lbs. oz. kg; 28.32 BMI Method: General Appearance: No Apparent Distress, Anxious Eyes: Bilateral Eye Normal Inspection, Bilateral Eye PERRL HEENT: PERRL/EOMI, Normal ENT Inspection, Pharynx Normal Neck: Full Range of Motion, Normal Inspection, Non Tender, Supple, Carotid Bruit Respiratory: Normal Breath Sounds, No Accessory Muscle Use, No Respiratory Distress Cardiovascular: Regular Rate, Rhythm, No Murmur Gastrointestinal: Normal Bowel Sounds, No Organomegaly, No Pulsatile Mass, Non Tender, Soft Back: Normal Inspection, No CVA Tenderness, No Vertebral Tenderness Extremity: Normal Range of Motion, Non Tender, No Calf Tenderness (bilateral CVA tenderness noted, mild suprapubic tenderness on exam) Neurologic/Psychiatric: Alert, Oriented x3, No Motor/Sensory Deficits, Normal Mood/Affect Skin: Normal Color, Warm/Dry Lymphatic: No Adenopathy Results Results/Procedures Labs Laboratory Tests 10/16/21 17:10 10/16/21 21:56 10/17/21 02:20 10/17/21 12:44 Patient resulted labs reviewed. Assessment/Plan Assessment and Plan Assess & Plan/Chief Complaint Assessment: Sepsis with elevated lactic acid and procalcitonin presumed bacterial source placed on vancomycin and Zosyn on admit Possible endometrial hematoma infection status post D&C Suspected peritonitis requiring higher level of care transfer Elevated total bilirubin Elevated transaminases Thrombocytopenia Leukocytosis Plan: Antibiotics IV fluids Transfer to higher level care DAVID LUONG DO Oct 17, 2021 07:31
--- NOTE | 2021-10-17 09:36 | Diagnostic Imaging Report ---
PROCEDURE: US PELVIC (NON OB) TECHNIQUE: Multiple real-time grayscale images were obtained over the pelvis in various projections transabdominally. INDICATION: Patient is 6 days postop from D&C. Patient has sepsis and endometritis as well as abdominal pain. Uterus is anteverted measuring 8.9 x 5.6 x 7.3 cm. Endometrium is significantly thickened and heterogeneous. Endometrium measures up to 3.8 cm. There is internal debris and likely blood products. No myometrial mass is seen. Right ovary measures 3.4 x 2.0 x 1.8 cm and shows normal vascularity. Left ovary cannot be visualized due to bowel gas. There is no free fluid. IMPRESSION: Thickened and heterogeneous endometrium containing internal debris and likely blood products. Dictated by: Dictated on workstation # [id number]
--- NOTE | 2021-10-17 09:47 | Diagnostic Imaging Report ---
INDICATION: Abdominal pain. PROCEDURE: Ultrasound abdomen complete. TECHNIQUE: Multiple real-time grayscale images were obtained of the abdomen in various projections. The liver is normal in size at 16.3 cm. The portal vein is patent and shows normal direction of flow. No liver mass is detected. The gallbladder is without stones or sludge. No wall thickening or biliary ductal dilatation is seen. The pancreas is unremarkable. The spleen is normal in size at 13.2 cm. Aorta is nonaneurysmal. IVC is patent. The kidneys are without calculi or hydronephrosis. There is no ascites. IMPRESSION: Unremarkable abdominal ultrasound. Dictated by: Dictated on workstation # [id number]
[2021-10-17] MEDS ORDERED: VANCOMYCIN INJECTION 750 MG in NS (IVPB) 250 ML IV SCH (10:00)
[2021-10-17] MEDS ORDERED: NS (IVPB) 250 ML ONE (10:48)
--- NOTE | 2021-10-17 11:16 | Progress Note ---
Standard Progress Note Progress Notes/Assess & Plan Date Seen by a Provider: Oct 17, 2021 Time Seen by a Provider: 11:10 Progress/Assessment & Plan S: pain wellcontrolled with IV pain meds. No new c/o O: vital signs stable, remains afebrile Gen: A&O x 3, NAD. Chest: nonlabored Abd: soft, tender on exam, no rebound/guarding Ext: NT Official sono report pending: uterus with [id number] heterogenous material, no solid component or active blood flow noted Labs: Lactic acid trending down. Hb stable. WBC 17 <--19. Cr and LFTs increased. A: s/p D&C POD#6 with suspected septic AB P: Had planned to perform sono-=guided D&C following transfusion of platelets and FFP. However, we do not have additional platelets in house. Additionally, spoke with Dr. Del Valle and was able to obtain his records of care. His findings at time of D&C 10/11 was almost identical and the procedure he performed, including uterotonics, was also the same. Given our limitation of resources, feel the patient best served by transferring to tertiary center while she is stable rather than performing a procedure that might not correct her clinical course and potentially put her in an unstable position. Patient agrees to care plan. Transfer requested from [place]. - discussed with patient and SO plan and questions answered to their sa tisfaction Focused Exam Lactate Level 10/16/21 21:56: Lactic Acid Level 2.99*H 10/17/21 00:06: Lactic Acid Level 3.19*H 10/17/21 02:20: Lactic Acid Level 1.87 Time of Focused Exam: 19:00 JOHNNY LAND MD Oct 17, 2021 11:16
[2021-10-17] MEDS ORDERED: NICOTINE 21 MG (NICODERM) PATCH TD NR (11:45)
[2021-10-17 12:56] LABS: EOSINOPHILS % (AUTO) 0 % (0-10); HEMATOCRIT 35 % (35-52)
[2021-10-17 12:58] LABS: BASOPHILS % (AUTO) 0 % (0-10); HEMOGLOBIN 11.9 g/dL (11.5-16.0); LYMPHOCYTES # (AUTO) 0.6 10^3/uL (1.0-4.0); LYMPHOCYTES % (AUTO) 5 % (12-44); MEAN CORPUSCULAR HEMOGLOBIN 32 pg (25-34); MEAN CORPUSCULAR HGB CONC 34 g/dL (32-36); MEAN CORPUSCULAR VOLUME 92 fL (80-99); MEAN PLATELET VOLUME 12.4 fL (9.0-12.2); MONOCYTES # (AUTO) 0.3 10^3/uL (0.0-1.0); MONOCYTES % (AUTO) 3 % (0-12); NEUTROPHILS # (AUTO) 10.8 10^3/uL (1.8-7.8); NEUTROPHILS % (AUTO) 90 % (42-75); PLATELET COUNT 42 10^3/uL (130-400)
[2021-10-17 13:01] LABS: POTASSIUM 3.7 MMOL/L (3.6-5.0)
[2021-10-17 13:02] LABS: CALCIUM 7.2 MG/DL (8.5-10.1)
[2021-10-17 13:05] LABS: INR 1.3 (0.8-1.4); PROTHROMBIN TIME PATIENT 16.6 SEC (12.2-14.7)
[2021-10-17 13:06] LABS: CREATININE SERUM 1.37 MG/DL (0.60-1.30)
[2021-10-17 13:23] LABS: BAND NEUTROPHILS 18 %; LYMPHOCYTES % (MANUAL) 6 %; METAMYELOCYTES % 3 %; MONOCYTES % (MANUAL) 3 %; MYELOCYTES % 1 %; NEUTROPHILS % (MANUAL) 69 %; RBC MORPH NORMAL
[2021-10-17 21:51] LABS: HEPATITIS C ANTIBODY C Non-Reactive (Non-Reactive)
[2021-10-18] MEDS ORDERED: TROUGH ORDER-PHARMACY XX ONE (09:00)
[2021-10-18] MEDS ORDERED: NICOTINE PATCH REMOVAL TP SCH (11:45)
== END 2021-10-17 15:00 | disposition short-term general hospital (02) | DRG 779 ==
LOC: ER 16:40 → 4TH 19:15 → ICU 10-17
PROVIDERS: ADMIT Obstetrics & Gynecology; ATTEND Obstetrics & Gynecology
PROC: 8E0ZXY6 Isolation (ICD-10-PCS; principal; 2021-10-16)
DX: O03.87 Sepsis following complete or unspecified spontaneous abortion (principal); N39.0 Urinary tract infection, site not specified; O99.325 Drug use complicating the puerperium; O03.88 Urinary tract infection following complete or unspecified spontaneous abortion; O03.89 Complete or unspecified spontaneous abortion with other complications; O72.3 Postpartum coagulation defects; D69.6 Thrombocytopenia, unspecified; O03.6 Delayed or excessive hemorrhage following complete or unspecified spontaneous abortion; Z20.822 Contact with and (suspected) exposure to COVID-19; O99.335 Smoking (tobacco) complicating the puerperium; F17.210 Nicotine dependence, cigarettes, uncomplicated; F12.90 Cannabis use, unspecified, uncomplicated; Z87.442 Personal history of urinary calculi
CPT/HCPCS: 36415; 71045; 74177; 76700; 76856; 80048; 80053; 80074; 81000; 82247; 83605; 83690; 83735; 84100; 84145; 84450; 84460; 84702; 85007; 85025; 85027; 85384; 85610; 85730; 86141; 86850; 86880; 86900; 86901; 86920; 87040; 87081; 87088; 87491; 87591; 87636